=== PATIENT | female | born 1980 | race African-American/Black ===

== ENCOUNTER 2020-04-01 20:53 | Emergency (ER) | payer MEDICAID, OTHER ==
[~2020-04-01] VITALS: Ht 167.6 cm; Wt 137.0 kg
[2020-04-01] MEDS ORDERED: SODIUM CHLORIDE 0.9% 1,000 ML IV ONE ×2 (21:39→21:55)
[2020-04-01] MEDS ORDERED: LORAZEPAM 2MG/ML CPJ IV STA (21:55)
[2020-04-01 22:33] LABS: CLARITY URINE CLEAR (CLEAR); COLOR URINE YELLOW (YELLOW); KETONES URINE NEGATIVE (NEGATIVE); LEUKOCYTE ESTERASE URINE NEGATIVE (NEGATIVE); NITRITE URINE NEGATIVE (NEGATIVE); OCCULT BLOOD URINE TRACE (NEGATIVE); PH URINE 5.5 (4.5-8.0); PROTEIN URINE NEGATIVE (NEGATIVE); SPECIFIC GRAVITY URINE 1.011 (1.005-1.030); UROBILINOGEN URINE 0.2 E.U./dL (0.2-1.0)
[2020-04-01 22:48] LABS: *BARBITURATES SCREEN URINE NEGATIVE (NEGATIVE); *BENZODIAZEPINES SCREEN URINE NEGATIVE (NEGATIVE)
[2020-04-01 22:49] LABS: *COCAINE SCREEN URINE NEGATIVE (NEGATIVE); CANNABINOID URINE SCREEN NEGATIVE (NEGATIVE); METHADONE URINE SCREEN NEGATIVE (NEGATIVE); OPIATES URINE SCREEN NEGATIVE (NEGATIVE); PHENCYCLIDINE URINE SCREEN NEGATIVE (NEGATIVE)
[2020-04-01 22:50] LABS: *AMPHETAMINES SCREEN URINE PRESUMTIVE POSITIVE (NEGATIVE)
[2020-04-01 23:11] LABS: BASOPHILS % 0.8 % (0.0-2.0); EOSINOPHILS % 3.3 % (0.0-5.0); HEMATOCRIT. 33.6 % (36.0-48.0); HEMOGLOBIN. 11.2 g/dL (12.0-16.0); LYMPHOCYTES % 23.3 % (20.0-50.0); MEAN CORPUSCULAR HEMOGLOBIN 26.4 pg (28.0-32.0); MEAN CORPUSCULAR VOLUME 79.3 fL (81.0-99.0); MEAN PLATELET VOLUME 7.1 fl (7.4-10.4); MONOCYTES % 7.7 % (2.0-8.0); NEUTROPHILS % 64.9 % (40.0-76.0); PLATELET 346 x1000/uL (130-400); RED BLOOD CELL COUNT 4.23 mill/uL (4.2-5.4); RED CELL DISTRIBUTION WIDTH 16.1 % (11.6-14.6)
[2020-04-01 23:20] LABS: HCG SCREEN NEGATIVE
[2020-04-01 23:22] LABS: CHLORIDE 105 mEq/L (98-107)
[2020-04-01 23:26] LABS: ETHANOL BLOOD < 10 mg/dL
[2020-04-02] MEDS ORDERED: SILVER SULFADIAZINE 1% CREAM 25GM TOP ONE (01:30)
[2020-04-02] MEDS ORDERED: CLONIDINE 0.2MG TABLET PO ONE (03:15)
[2020-04-02] MEDS ORDERED: SILVER SULFADIAZINE 1% CREAM 25GM TOP SCH (06:15)
[2020-04-02 06:30] VITALS: BP 175/92
== END 2020-04-02 08:02 | disposition home or self-care (01) ==
LOC: ER 21:01
DX: F91.8 Other conduct disorders (principal); F15.10 Other stimulant abuse, uncomplicated; F16.10 Hallucinogen abuse, uncomplicated; L97.829 Non-pressure chronic ulcer of other part of left lower leg with unspecified severity; E66.9 Obesity, unspecified; Z68.42 Body mass index [BMI] 45.0-49.9, adult; Z88.0 Allergy status to penicillin
CPT/HCPCS: 36415; 80053; 80305; 80307; 80320; 80329; 81003; 84703; 85025; 93005; 96361; 96374; 99285; J2060; J7030; G0480

== ENCOUNTER 2020-04-02 09:06 | Emergency (ER) | payer MEDICAID ==
[~2020-04-02] VITALS: Ht 167.6 cm; Wt 136.0 kg
[2020-04-02] MEDS ORDERED: LORAZEPAM 1MG TABLET PO ONE (12:15)
[2020-04-02 13:07] LABS: CLARITY URINE TURBID (CLEAR); COLOR URINE YELLOW (YELLOW); KETONES URINE NEGATIVE (NEGATIVE); LEUKOCYTE ESTERASE URINE 1+ (NEGATIVE); NITRITE URINE NEGATIVE (NEGATIVE); OCCULT BLOOD URINE NEGATIVE (NEGATIVE); PH URINE 5.5 (4.5-8.0); PROTEIN URINE NEGATIVE (NEGATIVE); SPECIFIC GRAVITY URINE 1.009 (1.005-1.030); UROBILINOGEN URINE 0.2 E.U./dL (0.2-1.0)
[2020-04-02 13:19] LABS: *BARBITURATES SCREEN URINE NEGATIVE (NEGATIVE); *BENZODIAZEPINES SCREEN URINE NEGATIVE (NEGATIVE); *COCAINE SCREEN URINE NEGATIVE (NEGATIVE)
[2020-04-02 13:20] LABS: CANNABINOID URINE SCREEN NEGATIVE (NEGATIVE); METHADONE URINE SCREEN NEGATIVE (NEGATIVE); OPIATES URINE SCREEN NEGATIVE (NEGATIVE); PHENCYCLIDINE URINE SCREEN NEGATIVE (NEGATIVE)
[2020-04-02 13:24] LABS: BASOPHILS % 1.1 % (0.0-2.0); EOSINOPHILS % 3.1 % (0.0-5.0); HEMATOCRIT. 35.6 % (36.0-48.0); HEMOGLOBIN. 11.6 g/dL (12.0-16.0); LYMPHOCYTES % 21.5 % (20.0-50.0); MEAN CORPUSCULAR VOLUME 79.8 fL (81.0-99.0); MEAN PLATELET VOLUME 7.1 fl (7.4-10.4); MONOCYTES % 3.6 % (2.0-8.0); NEUTROPHILS % 70.7 % (40.0-76.0); PLATELET 330 x1000/uL (130-400); RED BLOOD CELL COUNT 4.46 mill/uL (4.2-5.4); RED CELL DISTRIBUTION WIDTH 16.1 % (11.6-14.6)
[2020-04-02 13:29] LABS: *AMPHETAMINES SCREEN URINE PRESUMTIVE POSITIVE (NEGATIVE)
[2020-04-02 13:30] LABS: CHLORIDE 106 mEq/L (98-107)
[2020-04-02 13:33] LABS: HCG SCREEN NEGATIVE
[2020-04-02 13:36] LABS: ETHANOL BLOOD < 10 mg/dL
[2020-04-02] MEDS ORDERED: NITROFURANTOIN 100MG M/M CAPSULE PO ONE (16:15)
[2020-04-03] MEDS ORDERED: CLONIDINE 0.1MG TABLET PO ONE (01:30)
[2020-04-03] MEDS ORDERED: LORAZEPAM 1MG TABLET PO ONE (20:45)
[2020-04-04 18:30] VITALS: BP 147/88
== END 2020-04-04 18:58 | disposition home or self-care (01) ==
LOC: ER 09:15
DX: T43.621A Poisoning by amphetamines, accidental (unintentional), initial encounter (principal); F23 Brief psychotic disorder; R45.851 Suicidal ideations; N30.00 Acute cystitis without hematuria; D64.9 Anemia, unspecified; E66.9 Obesity, unspecified; F43.10 Post-traumatic stress disorder, unspecified; Z68.42 Body mass index [BMI] 45.0-49.9, adult; Z88.0 Allergy status to penicillin; Z59.0 Homelessness; Y92.89 Other specified places as the place of occurrence of the external cause
CPT/HCPCS: 36415; 71045; 80053; 80305; 80307; 80320; 80329; 81003; 81025; 84703; 85025; 93005; 99285; G0480